=== PATIENT | male | born 1950 | race Hispanic/Latino ===

== ENCOUNTER 2017-07-18 12:17 | Emergency (ER) | payer MEDICARE, OTHER ==
[~2017-07-18 12:17] MED LIST: ESOM40CA PO; FURO40TA5 PO; HYDR-3421 PO; Midodrine Hcl PO
[2017-07-18] MEDS ORDERED: MORPHINE SULFATE 2 MG/ML 1ML SYG ONE (13:25)
[2017-07-18 14:34] LABS: APPEARANCE,URINE SLIGHTLY CLOUDY (CLEAR); BILIRUBIN,URINE Negative (NEGATIVE); COLOR,URINE Dark Yellow (YELLOW); GLUCOSE, URINE (UA) Negative (NEGATIVE); KETONES,URINE Negative (NEGATIVE); LEUKOCYTE ESTERASE ,URINE Trace (NEGATIVE); NITRATE,URINE Negative (NEGATIVE); OCCULT BLOOD,URINE Negative (NEGATIVE); PROTEIN,URINE Negative (NEGATIVE); UROBILINOGEN,URINE 0.2 mg/dL (0.2-1.0)
[2017-07-18 14:53] LABS: BACTERIA,URINE Few /HPF (None Seen); RBC,URINE None Seen /HPF (0-1); WBC,URINE 0-1 /HPF (0-1)
== END 2017-07-18 16:08 | disposition home or self-care (01) ==
LOC: EDH 12:17
DX: T85.638A Leakage of other specified internal prosthetic devices, implants and grafts, initial encounter (principal); K74.60 Unspecified cirrhosis of liver; M81.0 Age-related osteoporosis without current pathological fracture; Z88.8 Allergy status to other drugs, medicaments and biological substances; Z87.891 Personal history of nicotine dependence
CPT/HCPCS: 81001; 87088; 96374